=== PATIENT | male | born 1985 | race African-American/Black ===

== ENCOUNTER 2019-10-04 13:32 | Emergency (ER) | payer OTHER ==
[~2019-10-04] VITALS: Ht 185.4 cm; Wt 103.7 kg
[2019-10-04 14:17] LABS: BASO % 0.5 % (0.0-1.0); EOS # 0.1 10^3/uL (0.0-0.5); EOS % 1.3 % (0.0-3.0); HEMATOCRIT 42.5 % (42.0-52.0); HEMOGLOBIN 14.5 g/dl (13.5-17.5); LYMPH # 2.1 10^3/uL (1.5-5.0); LYMPH % 32.7 % (24.0-44.0); MEAN CORPUSCULAR HEMOGLOBIN 29.5 pg (27.0-33.0); MEAN CORPUSCULAR HGB CONC 34.1 g/dl (32.0-36.5); MEAN CORPUSCULAR VOLUME 86.6 fl (80.0-96.0); MONO # 0.6 10^3/uL (0.0-0.8); MONO % 8.9 % (0.0-5.0); NEUTROPHILS # 3.6 10^3/uL (1.5-8.5); NEUTROPHILS % 56.4 % (36.0-66.0); PLATELET COUNT, AUTOMATED 183 10^3/uL (150-450); RED BLOOD COUNT 4.91 10^6/uL (4.30-6.10); WHITE BLOOD COUNT 6.4 10^3/uL (4.0-10.0)
[2019-10-04 14:27] LABS: PROTHROMBIN TIME 14.9 SECONDS (11.8-14.0)
[2019-10-04] MEDS ORDERED: GI COCKTAIL 50ML BTL(HYOSCYAMINE/MAALOX/LIDOCAINE VISCOUS)(1:3:1) PO ONE (14:30)
[2019-10-04 14:57] LABS: ALT/SGPT 42 U/L (12-78); CK-MB VALUE MASS < 1.0 NG/ML (<3.6); CPK CREATINE PHOSPHOKINASE 1005 U/L (39-308)
[2019-10-04 14:58] LABS: ALBUMIN 4.4 GM/DL (3.2-5.2); BILIRUBIN,DIRECT 0.2 MG/DL (0.0-0.2); BILIRUBIN,TOTAL 0.9 MG/DL (0.2-1.0); LIPASE 187 U/L (73-393); TOTAL PROTEIN 7.6 GM/DL (6.4-8.2); TROPONIN I < 0.02 NG/ML (< 0.10)
[2019-10-04 17:00] LABS: D-DIMER QUANT < 270 ng/ml (<500)
[2019-10-04 17:30] VITALS: BP 135/65
--- NOTE | 2019-10-04 17:45 | REP ---
CHEST, SINGLE VIEW: Single view of the chest is performed. No acute infiltrate is seen. Lungs are clear. Pleural angles are sharp. There may be mild cardiomegaly. Mediastinal silhouette is unremarkable. IMPRESSION: Possible mild cardiomegaly with no acute pulmonary disease. Electronically Signed by Addy Edmondson MD 10/08/2019 09:10 A
--- NOTE | 2019-10-04 20:43 | ECGEPIP ---
[facility] - ED Test Date: 2019-10-04 Pat Name: DIANA HERRERA Department: Room: - Gender: Male [employer]: TB : 1985 Requested By: Jina Canas Order Number: [id number] Reading MD: Charles Marquez Measurements Intervals [place] Rate: 55 P: 38 WY: 193 QRS: 40 QRSD: 98 T: 30 QT: 421 QTc: 403 Interpretive Statements SINUS BRADYCARDIA NO PRIORS FOR COMPARISON Electronically Signed on 10-04-2019 20:43:07 EDT by Charles Marquez
--- NOTE | 2019-10-09 10:44 | ED PDOC ---
Post-Departure Follow-Up sebastian weir faxed formal report of cxr for fu Taya Trevino MD Oct 09, 2019 10:44
== END 2019-10-04 17:44 | disposition home or self-care (01) ==
LOC: M ED 13:32
DX: R07.9 Chest pain, unspecified (principal); R00.1 Bradycardia, unspecified